=== PATIENT | male | born 1965 | race African-American/Black ===

== ENCOUNTER 2016-08-08 19:31 | Emergency (ER) | payer OTHER ==
[~2016-08-08] VITALS: Ht 167.6 cm; Wt 101.0 kg
[2016-08-08] MEDS ORDERED: IBUPROFEN 600MG TABLET PO ONE (21:00)
[2016-08-08 21:10] VITALS: BP 130/83
== END 2016-08-08 22:10 | disposition home or self-care (01) ==
LOC: ER 19:31
DX: S39.012A Strain of muscle, fascia and tendon of lower back, initial encounter (principal); V49.49XA Driver injured in collision with other motor vehicles in traffic accident, initial encounter; Y93.89 Activity, other specified; Y99.9 Unspecified external cause status; Y92.89 Other specified places as the place of occurrence of the external cause
CPT/HCPCS: 99283; Z7610